=== PATIENT | female | born 1990 | race American Indian/Alaskan Native ===

== ENCOUNTER 2019-02-04 12:43 | Emergency (ER) | payer OTHER ==
[2019-02-04 13:08] VITALS: TEMP 98.8
[2019-02-04 13:56] LABS: BASO # 0.01 K/mm3 (0.0-2.0); BASO % 0.1 % (0.0-3.0); EOS # 0.3 (0.0-0.7); EOS % 2.7 % (1.5-5.0); HEMOGLOBIN 12.3 g/dL (12.0-16.0); LYMPH # 3.3 (1.2-3.4); LYMPH % 35.7 % (22.0-35.0); MEAN CELL VOLUME 78.6 fl (80.0-105.0); MEAN CORPUSCULAR HEMOGLOBIN 25.6 pg (25.0-35.0); MEAN CORPUSCULAR HGB CONC 32.5 g/dl (31.0-37.0); MEAN PLATELET VOLUME 8.1 fl (7.0-11.0); MONO # 0.3 (0.1-0.6); MONO % 3.7 % (1.0-6.0); RBC 4.81 10^6/uL (3.5-6.1); RED CELL DISTRIBUTION WIDTH 13.4 % (11.5-14.5); WHITE BLOOD COUNT 9.2 10^3/uL (4.5-11.0)
[2019-02-04 14:07] LABS: ALBUMIN 4.3 g/dL (3.0-4.8); ALT/SGPT 19 U/L (7-56); AST/SGOT 21 U/L (14-36); BLOOD UREA NITROGEN 9 mg/dL (7-21); CALCIUM 9.2 mg/dL (8.4-10.5); GFR NON-AFRICAN AMERICAN > 60
--- NOTE | 2019-02-04 14:18 | ED PDOC ---
Arrival/HPI - General Chief Complaint: Female Genitourinary Time Seen by Provider: 02/04/19 13:00 Historian: Patient - History of Present Illness Narrative History of Present Illness (Text): 02/04/19 13:00 Marciano Pablo is a 28 year old female, /A0 and with no significant past medical history, who presents to the emergency department complaining of vaginal bleeding since yesterday. Patient informs of positive home test yesterday. Patient states bleeding began as spotting and was worsened with clots s/p abdominal cramping last night. Pt also notes back pain. Last menstrual period 01/01/19. Patient denies fevers, chills, chest pain, shortness of breath, cough, nausea, vomiting, diarrhea, dysuria, hematuria, or any other complaints. No on fertility treatment and no history of ectopic . 02/04/19 16:03 Time/Duration: 24 hours Symptom Onset: Sudden Activities at Onset: Light Context: Home Past Medical History - Provider Review Nursing Documentation Reviewed: Yes - Infectious Disease Hx of Infectious Diseases: None - Psychiatric Hx Substance Use: No - Surgical History Hx Cholecystectomy: Yes (2018) - Anesthesia Hx Anesthesia: Yes Hx Anesthesia Reactions: No Hx Malignant Hyperthermia: No Family/Social History - Physician Review Nursing Documentation Reviewed: Yes Family/Social History: Unknown Family HX Smoking Status: Never Smoked Hx Alcohol Use: Yes Frequency of alcohol use: Socially Hx Substance Use: No Allergies/Home Meds Allergies/Adverse Reactions: Allergies No Known Allergies Allergy (Verified 02/04/19 13:08) Home Medications: Home Meds Medication Instructions Recorded Confirmed No Known Home Med 02/04/19 02/04/19 Review of Systems - Review of Systems Constitutional: absent: Fevers, Other (chills) Respiratory: absent: SOB, Cough Cardiovascular: absent: Chest Pain Gastrointestinal: Abdominal Pain (described as cramping). absent: Constipation, Diarrhea, Nausea, Vomiting Genitourinary Female: Vaginal Bleeding. absent: Dysuria, Hematuria Musculoskeletal: Back Pain (now resolved) Neurological: absent: Headache, Dizziness Physical Exam Vital Signs Reviewed: Yes Vital Signs Temp Pulse Resp BP Pulse Ox 02/04/19 13:02 98.8 F 90 19 122/81 99 Temperature: Afebrile Blood Pressure: Normal Pulse: Regular Respiratory Rate: Normal Appearance: Positive for: Well-Appearing, Non-Toxic, Comfortable Pain Distress: None Mental Status: Positive for: Alert and Oriented X 3 - Systems Exam Head: Present: Atraumatic, Normocephalic Pupils: Present: PERRL Extroacular Muscles: Present: EOMI Conjunctiva: Present: Normal Mouth: Present: Moist Mucous Membranes Neck: Present: Normal Range of Motion Respiratory/Chest: Present: Clear to Auscultation, Good Air Exchange. No: Re spiratory Distress, Accessory Muscle Use, Wheezes, Rales, Rhonchi Cardiovascular: Present: Regular Rate and Rhythm, Normal S1, S2. No: Murmurs, Rub, Gallop Abdomen: Present: Normal Bowel Sounds. No: Tenderness, Distention, Peritoneal Signs, Rebound, Guarding Back: Present: Normal Inspection Upper Extremity: Present: Normal Inspection. No: Cyanosis, Edema Lower Extremity: Present: Normal Inspection. No: Edema Neurological: Present: GCS=15, CN II-XII Intact, Speech Normal Skin: Present: Warm, Dry, Normal Color. No: Rashes Psychiatric: Present: Alert, Oriented x 3, Normal Insight, Normal Concentration Medical Decision Making ED Course and Treatment: 02/04/19 13:00 Impression: Marciano Pablo is a 28 year old female, /A0 and with no significant past medical history, who presents to the emergency department complaining of vaginal bleeding since yesterday. Plan: -- Labs -- Urinalysis -- US OB Transvaginal -- Reassess and disposition Prior Visits: Notes and results from previous visits were reviewed. Patient was last seen in the emergency department on Progress Notes: 02/04/19 15:07 IMPRESSION: No intrauterine gestation identified. Cannot rule out ectopic . Correlate with serial beta HCG evaluation. 3.4 cm fundal uterine fibroid. 02/04/19 15:36 Blood bank reports that she is A+. BHCG<2.34. Labs grossly normal. Patient given detailed return instructions. - Lab Interpretations Lab Results: Total Bilirubin 0.3 mg/dL (0.2-1.3) 02/04/19 13:51 AST 21 U/L (14-36) 02/04/19 13:51 ALT 19 U/L (7-56) 02/04/19 13:51 Alkaline Phosphatase 63 U/L (38-126) 02/04/19 13:51 Total Protein 8.6 g/dL (5.8-8.3) H 02/04/19 13:51 Albumin 4.3 g/dL (3.0-4.8) 02/04/19 13:51 Globulin 4.2 gm/dL 02/04/19 13:51 Albumin/Globulin Ratio 1.0 (1.1-1.8) L 02/04/19 13:51 - RAD Interpretation Radiology Orders: 02/04/19 13:16 OB TRANSVAGINAL [US] Stat - Scribe Statement The provider has reviewed the documentation as recorded by the Scribe Stephen De La O All medical record entries made by the Scribe were at my direction and personally dictated by me. I have reviewed the chart and agree that the record accurately reflects my personal performance of the history, physical exam, medical decision making, and the department course for this patient. I have also personally directed, reviewed, and agree with the discharge instructions and disposition. Disposition/Present on Arrival - Present on Arrival Any Indicators Present on Arrival: No History of DVT/PE: No History of Uncontrolled Diabetes: No Urinary Catheter: No History of Decub. 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 Return immediately with any worsening symptoms. Referrals: PCP,NO [Primary Care Provider] - Follow up with primary Forms: [employer] (Malay)
[2019-02-04 14:51] LABS: PH,URINE 5.5 (4.7-8.0); URINE BILIRUBIN NEGATIVE (NEGATIVE); URINE BLOOD LARGE (NEGATIVE); URINE GLUCOSE (UA) NEGATIVE (NEGATIVE); URINE LEUKOCYTE ESTERASE NEGATIVE Leu/uL (NEGATIVE); URINE PROTEIN 30 mg/dL (<30 mg/dL); URINE UROBILINOGEN 0.2 E.U./dL (<1 E.U./dL)
[2019-02-04 14:52] LABS: URINE APPEARANCE TURBID (CLEAR); URINE COLOR YELLOW (YELLOW)
[2019-02-04 14:57] LABS: URINE BACTERIA FEW /hpf
--- NOTE | 2019-02-04 14:57 | US ---
Date of service: 02/04/2019 PROCEDURE: OB Pelvic Ultrasound HISTORY: vaginal bleeding, LMP: 01/01/2019 COMPARISON: None available. FINDINGS: UTERUS: Uterus measures 8.1 x 3.3 x 5.7 cm. Fundal uterine fibroid, 3.3 x 2.6 x 3.4 cm. The endometrium measures 6 mm in width. There is no intrauterine gestational sac identified. There is no endometrial fluid. Please note that ectopic gestation must be considered in the absence of an intrauterine gestational sac, in the presence of elevated beta HCG. CERVIX: Unremarkable RIGHT OVARY: Measures 3.0 x 2.5 x 2.9 cm. No mass lesion. Normal flow. LEFT OVARY: Measures 3.4 x 2.3 x 3.2 cm. No solid mass. Normal flow. FREE FLUID: None. OTHER FINDINGS: None. IMPRESSION: No intrauterine gestation identified. Cannot rule out ectopic . Correlate with serial beta HCG evaluation. 3.4 cm fundal uterine fibroid.
[2019-02-04 15:14] VITALS: BP 128/74; PULSE 86; RESP 16; O2SAT 100
== END 2019-02-04 16:11 | disposition home or self-care (01) ==
LOC: ED 12:43
DX: O03.9 Complete or unspecified spontaneous abortion without complication (principal)